=== PATIENT | female | born 1985 | race Caucasian/White ===

== ENCOUNTER 2018-02-09 08:05 | Observation (INO) | payer OTHER ==
[~2018-02-09] VITALS: Ht 170.2 cm; Wt 93.4 kg
[2018-02-09 08:29] VITALS: BP 118/67
[2018-02-09] MEDS ORDERED: PREN1TAB80 PO (08:30)
== END 2018-02-09 09:05 | disposition home or self-care (01) ==
LOC: 4S 08:05
PROVIDERS: ADMIT Obstetrics & Gynecology; ATTEND Obstetrics & Gynecology
DX: Z34.83 Encounter for supervision of other normal pregnancy, third trimester (principal); Z3A.37 37 weeks gestation of pregnancy
CPT/HCPCS: 59025; G0378

== ENCOUNTER 2018-02-21 15:11 | Observation (INO) | payer OTHER ==
[~2018-02-21] VITALS: Ht 170.2 cm; Wt 96.2 kg
[~2018-02-21 15:11] MED LIST: PREN1TAB80 PO
[2018-02-21 16:34] VITALS: BP 135/75
== END 2018-02-21 16:10 | disposition home or self-care (01) ==
LOC: 4S 15:11
PROVIDERS: ADMIT Obstetrics & Gynecology; ATTEND Obstetrics & Gynecology
DX: Z34.83 Encounter for supervision of other normal pregnancy, third trimester (principal); Z3A.38 38 weeks gestation of pregnancy
CPT/HCPCS: 59025; G0378

== ENCOUNTER 2018-02-24 15:15 | Inpatient (IN) | payer OTHER ==
[~2018-02-24] VITALS: Ht 165.1 cm; Wt 96.6 kg
[2018-02-24] MEDS: RINGERS SOLUTION,LACTATED 1,000 ML IV SCH (15:49)
[2018-02-24] MEDS ORDERED: RINGERS SOLUTION,LACTATED 1,000 ML IV PRN (15:49)
[2018-02-24] MEDS ORDERED: LIDOCAINE HCL/PF 1% 30 ML VIAL INJ PRN (16:00)
[2018-02-24] MEDS ORDERED: FentaNYL CITRATE-PF 100 MCG/2 ML VIAL IVP PRN (16:00)
[2018-02-24] MEDS ORDERED: CITRIC ACID/SODIUM CITRATE 30 ML SOLUTION UDCUP PO PRN (16:00)
[2018-02-24] MEDS ORDERED: METHYLERGONOVINE MALEATE 0.2 MG/ML VIAL IM PRN (16:00)
[2018-02-24] MEDS ORDERED: METOCLOPRAMIDE HCL 5 MG/ML 2 ML VIAL IVP PRN (16:00)
[2018-02-24 16:17] LABS: BASOPHILS % (AUTO) 0.8 % (0.0-2.0); EOSINOPHILS % (AUTO) 0.8 % (1.0-6.0); HEMATOCRIT 35.9 % (36-46); HEMOGLOBIN 12.7 g/dL (12.0-16.0); LYMPHOCYTES # (AUTO) 1.8 K/uL (1.0-4.8); LYMPHOCYTES % (AUTO) 18.6 % (22.0-44.0); MEAN CORPUSCULAR HGB CONC 35.4 G/dL (31.0-37.0); MEAN CORPUSCULAR VOLUME 88 fL (80-100); MONOCYTES # (AUTO) 0.8 K/uL (0.1-1.0); MONOCYTES % (AUTO) 7.9 % (2.0-9.0); NEUTROPHILS # (AUTO) 7.1 K/uL (1.8-7.7); NEUTROPHILS % (AUTO) 71.9 % (40.0-70.0); PLATELET COUNT (AUTO)-OB 272 K/uL (150-450); RED CELL DISTRIBUTION WIDTH 13.9 % (11.5-14.5)
[2018-02-24] MEDS ORDERED: DINOPROSTONE 10 MG VAGINAL SUPPOSITORY VG ONE (18:30)
[2018-02-24 19:22] VITALS: BP 124/72
[2018-02-24] MEDS ORDERED: OXYGEN THERAPY IH SCH (20:00)
[2018-02-25] MEDS: RINGERS SOLUTION,LACTATED 1,000 ML IV SCH ×2 (03:14→10:58)
[2018-02-25] MEDS ORDERED: OXYTOCIN 30 UNITS/LACT RINGERS 500 ML IV PRN (08:29)
[2018-02-25] MEDS ORDERED: ROPIVACAINE HCL/PF 0.2% 100 ML ED ONE (14:04)
[2018-02-25] MEDS ORDERED: LIDOCAINE HCL 2%/EPI 1:200,000/PF 20 ML VIAL ONE (14:04)
[2018-02-25] MEDS ORDERED: BENZOCAINE 20%/MENTHOL 56 GM SPRAY CANISTER TP PRN (17:15)
[2018-02-25] MEDS ORDERED: ACETAMINOPHEN/CODEINE 300-30 MG TABLET PO PRN ×2 (17:15)
[2018-02-25] MEDS ORDERED: LANOLIN 7 GM OINTMENT TP PRN (17:15)
[2018-02-25] MEDS ORDERED: GLYCERIN/WITCH HAZEL LEAF 40 PADS JAR TP PRN (17:15)
[2018-02-25] MEDS: IBUPROFEN 800 MG TABLET PO SCH (19:03)
[2018-02-25] MEDS: MAGNESIUM HYDROXIDE SUSPENSION 30 ML UDCUP PO SCH (21:43)
[2018-02-26] MEDS ORDERED: MEASLES/MUMPS/RUBELLA VACCINE, LIVE 0.5 ML/VIAL SQ ONE (00:45)
[2018-02-26] MEDS: IBUPROFEN 800 MG TABLET PO SCH ×3 (00:51→13:18)
[2018-02-26] MEDS: MAGNESIUM HYDROXIDE SUSPENSION 30 ML UDCUP PO SCH (08:15)
[2018-02-26] MEDS ORDERED: IBUP-2071 PO ×2 (10:16→10:24)
[2018-02-26] MEDS ORDERED: DSS100 PO (10:25)
[2018-02-26] MEDS ORDERED: PREN1TAB80 PO (10:28)
== END 2018-02-26 17:30 | disposition home or self-care (01) | DRG 775 ==
LOC: 4S 15:15 → OBSVTOIN 15:15
PROVIDERS: ADMIT Obstetrics & Gynecology; ATTEND Obstetrics & Gynecology
PROC: 10D07Z6 Extraction of Products of Conception, Vacuum, Via Natural or Artificial Opening (ICD-10-PCS; principal; 2018-02-25)
PROC: 3E0R3BZ Introduction of Anesthetic Agent into Spinal Canal, Percutaneous Approach (ICD-10-PCS; 2018-02-25)
PROC: 00HU33Z Insertion of Infusion Device into Spinal Canal, Percutaneous Approach (ICD-10-PCS; 2018-02-25)
DX: O41.03X0 Oligohydramnios, third trimester, not applicable or unspecified (principal); O76 Abnormality in fetal heart rate and rhythm complicating labor and delivery; Z37.0 Single live birth; Z3A.39 39 weeks gestation of pregnancy
CPT/HCPCS: 86850; 86900; 86901; 90707; J2590; J2795; J7120

== ENCOUNTER 2020-09-11 15:58 | Observation (INO) | payer OTHER ==
[~2020-09-11] VITALS: Ht 170.2 cm; Wt 99.3 kg
[~2020-09-11 15:58] MED LIST changes: +DSS100 PO; +IBUP-2071 PO
[2020-09-11 16:27] VITALS: BP 112/70
== END 2020-09-11 17:32 | disposition home or self-care (01) ==
LOC: 4S 15:58
PROVIDERS: ADMIT Obstetrics & Gynecology; ATTEND Obstetrics & Gynecology
DX: Z34.93 Encounter for supervision of normal pregnancy, unspecified, third trimester (principal); Z3A.38 38 weeks gestation of pregnancy
CPT/HCPCS: 59025; 99219

== ENCOUNTER 2020-09-26 08:45 | Inpatient (IN) | payer OTHER ==
[~2020-09-26 08:45] MED LIST changes: +CITRIC ACID/SODIUM CITRATE 30 ML SOLUTION UDCUP PO PRN; -DSS100 PO; +FentaNYL CITRATE PF 100 MCG/2 ML VIAL IVP PRN; +METHYLERGONOVINE MALEATE 0.2 MG/ML VIAL IM PRN; +METOCLOPRAMIDE HCL 5 MG/ML 2 ML VIAL IVP PRN; +OXYTOCIN 30 UNITS/LACT RINGERS 500 ML IV ONE; +OXYTOCIN 30 UNITS/LACT RINGERS 500 ML IV PRN; +RINGERS SOLUTION,LACTATED 1,000 ML IV PRN
[2020-09-26 09:38] VITALS: BP 120/64
[2020-09-26] MEDS: RINGERS SOLUTION,LACTATED 1,000 ML IV SCH ×2 (10:00→16:22)
[2020-09-26 10:29] LABS: COVID AG,FIA SOURCE NASOPHARYNGEAL
[2020-09-26 10:47] LABS: BASOPHILS % (AUTO) 0.4 % (0.0-2.0); EOSINOPHILS % (AUTO) 0.8 % (1.0-6.0); HEMATOCRIT 30.2 % (36-46); LYMPHOCYTES # (AUTO) 1.2 K/uL (1.0-4.8); LYMPHOCYTES % (AUTO) 15.2 % (22.0-44.0); MEAN CORPUSCULAR HEMOGLOBIN 26.1 pg (26.0-34.0); MEAN CORPUSCULAR HGB CONC 33.1 G/dL (31.0-37.0); MEAN CORPUSCULAR VOLUME 79 fL (80-100); MONOCYTES # (AUTO) 0.5 K/uL (0.1-1.0); MONOCYTES % (AUTO) 6.2 % (2.0-9.0); NEUTROPHILS % (AUTO) 77.4 % (40.0-70.0); PLATELET COUNT (AUTO) 306 K/uL (150-450); RED BLOOD CELL COUNT(AUTO) 3.83 MIL/uL (4.00-5.20); RED CELL DISTRIBUTION WIDTH 15.4 % (11.5-14.5)
[2020-09-26] MEDS ORDERED: INFLUENZA VIRUS VACCINE QVS 2020-21 (6MO+)/PF 60 MCG/0.5 ML SYRINGE IM ONE (12:15)
[2020-09-26] MEDS ORDERED: BUPIVACAINE HCL/DEX-WATER/PF 0.75% 2 ML AMP ITH ONE (15:42)
[2020-09-26] MEDS ORDERED: ROPIVACAINE HCL/PF 0.2% 100 ML ED ONE (15:42)
[2020-09-26] MEDS ORDERED: ROPIVACAINE HCL/PF 0.2% 100 ML ED PRN (16:00)
[2020-09-26] MEDS ORDERED: HYDROmorphone 2 MG/ML VIAL IVP PRN (16:00)
[2020-09-26] MEDS ORDERED: ONDANSETRON HCL 4 MG/2 ML VIAL IVP PRN (16:00)
[2020-09-26] MEDS ORDERED: MEPERIDINE-PF 25 MG/ML VIAL IVP PRN (16:00)
[2020-09-26] MEDS ORDERED: DiphenhydrAMINE HCL 50 MG/ML VIAL IVP PRN (16:00)
[2020-09-26] MEDS ORDERED: FentaNYL CITRATE PF 100 MCG/2 ML VIAL IVP PRN (16:00)
[2020-09-26] MEDS ORDERED: LANOLIN 7 GM OINTMENT TP PRN ×2 (17:30)
[2020-09-26] MEDS ORDERED: GLYCERIN/WITCH HAZEL LEAF 40 PADS JAR TP PRN ×2 (17:30)
[2020-09-26] MEDS ORDERED: BENZOCAINE 20%/MENTHOL 56 GM SPRAY CANISTER TP PRN ×2 (17:30)
[2020-09-26] MEDS ORDERED: ACETAMINOPHEN/CODEINE 300-30 MG TABLET PO PRN ×4 (17:30)
[2020-09-26] MEDS ORDERED: OXYGEN THERAPY IH SCH (20:00)
[2020-09-26] MEDS: IBUPROFEN 800 MG TABLET PO SCH (20:46)
[2020-09-26] MEDS ORDERED: MAGNESIUM HYDROXIDE SUSPENSION 30 ML UDCUP PO SCH (21:00)
[2020-09-26] MEDS: MAGNESIUM HYDROXIDE SUSPENSION 30 ML UDCUP PO SCH (21:00)
[2020-09-27] MEDS: IBUPROFEN 800 MG TABLET PO SCH ×3 (02:43→15:00)
[2020-09-27] MEDS: MAGNESIUM HYDROXIDE SUSPENSION 30 ML UDCUP PO SCH (09:00)
[2020-09-27] MEDS ORDERED: FERR-89 PO (09:53)
[2020-09-27] MEDS ORDERED: DSS100 PO (10:25)
== END 2020-09-27 17:06 | disposition home or self-care (01) | DRG 807 ==
LOC: OBSVTOIN 08:45 → 4S 08:45
PROVIDERS: ADMIT Obstetrics & Gynecology; ATTEND Obstetrics & Gynecology
PROC: 10E0XZZ Delivery of Products of Conception, External Approach (ICD-10-PCS; principal; 2020-09-26)
PROC: 10907ZC Drainage of Amniotic Fluid, Therapeutic from Products of Conception, Via Natural or Artificial Opening (ICD-10-PCS; 2020-09-26)
PROC: 3E0R3BZ Introduction of Anesthetic Agent into Spinal Canal, Percutaneous Approach (ICD-10-PCS; 2020-09-26)
PROC: 00HU33Z Insertion of Infusion Device into Spinal Canal, Percutaneous Approach (ICD-10-PCS; 2020-09-26)
DX: O80 Encounter for full-term uncomplicated delivery (principal); Z37.0 Single live birth; Z20.822 Contact with and (suspected) exposure to COVID-19; Z3A.41 41 weeks gestation of pregnancy
CPT/HCPCS: 86850; 86900; 86901; 87426; J2590; J2795; J3490; J7120